=== PATIENT | male | born 1945 | race Caucasian/White ===

== ENCOUNTER → 2018-09-23 15:07 | Outpatient (CLI) | payer MEDICARE, OTHER, SELFPAY ==
[2018-10-03 14:07] LABS: Clam <0.10 kU/L (Class 0); Codfish <0.10 kU/L (Class 0); Crab <0.10 kU/L (Class 0); Egg, White 0.16 kU/L (Class 0/I); Egg, Whole 0.17 kU/L (Class 0/I); Egg, Yolk <0.10 kU/L (Class 0); Gluten <0.10 kU/L (Class 0); Milk (Cow) <0.10 kU/L (Class 0); Shrimp <0.10 kU/L (Class 0); Tomato <0.10 kU/L (Class 0); Walnut, (Food) <0.10 kU/L (Class 0); Wheat <0.10 kU/L (Class 0); Yeast <0.10 kU/L (Class 0)
[2018-10-04 10:03] LABS: Banana 0.14 kU/L (Class 0/I); Peanut <0.10 kU/L (Class 0)
== END ==
PROVIDERS: Family Provider Family Medicine Geriatric Medicine; PCP Family Medicine Geriatric Medicine; Referring Provider Otolaryngology Otolaryngology/Facial Plastic Surgery; Visit Provider Otolaryngology Otolaryngology/Facial Plastic Surgery
DX: T78.40XA Allergy, unspecified, initial encounter (principal)
CPT/HCPCS: 36415; 86003

== ENCOUNTER → 2020-03-12 15:22 | Outpatient (CLI) | payer MEDICARE, OTHER, SELFPAY ==
--- NOTE | 2020-03-12 11:21 | COLBX_PTH ---
PATIENT: DIOGENES BOWIE LOC: [facility] U#:[id number] AGE/SX: 79/M ROOM: RE03/12/[address]: Dr. Edmond Lazar MD : 1945 BED: DIS: SPEC #: [id number] RECD: 03/12/20 15:01 STATUS: MIGUEL ÁNGEL SRINIVASAN #: [id number] KYLIE: 03/12/20 11:[address]: Edmond Lazar DEPT: SURGICAL PATHOLOGY RECD BY: Ayaan Victoria ENTERED: 03/15/20 08:12 SP TYPE: COLON BX OTHR DR: Dr. Mauro Templeton MD [facility] Tissues: COLON BIOPSY Procedures: Surgery Specimen Level IV HEADER OPERATION: Colonoscopy with biopsies PRE-OP DIAGNOSIS: History of adenomatous polyp of colon TISSUE SUBMITTED: Polyp right colon; rule out adenoma MICROSCOPIC DIAGNOSIS Right colon polyp, biopsy: Fragments of tubular adenoma. AM:ramírez 03/16/20 MICROSCOPIC DESCRIPTION Slides are reviewed. GROSS DESCRIPTION Received in fixative is one container labeled with the patient's name and designated polyp right colon. The specimen consists of multiple irregular fragments of light steinberg soft tissue that in aggregate measure 2 x 0.5 x 0.1 cm. The specimen is totally submitted in one cassette. / SJ:ramírez 03/15/20 TC:5 CPT: [id number]
== END ==
PROVIDERS: PCP Family Medicine Geriatric Medicine; Visit Provider Internal Medicine Gastroenterology
DX: Z86.010 Personal history of colon polyps (principal)
CPT/HCPCS: 88305

== ENCOUNTER → 2025-03-09 | Outpatient (CLI) | payer MEDICARE, OTHER, SELFPAY ==
--- NOTE | 2025-03-09 09:06 | RAD_ITS ---
PROCEDURE: ESOPHAGUS DUAL CONTRAST 03/09/2025 REASON FOR EXAM: GERD. Dysphagia. TECHNIQUE: ESOPHAGUS DUAL CONTRAST FLUOROSCOPIC TIME: 126 seconds. Dose: 42.4 mGy. COMPARISON: None. FINDINGS: No area of persistent esophageal narrowing is noted. No mucosal mass is seen. A widely patent esophagogastric junction is noted. Recurrent spasm is seen at the mid to distal esophagus. No hiatal hernia is appreciated. During the time of imaging, gastroesophageal reflux was not elicited. Limited imaging of the stomach and duodenum shows no abnormality. RAD/Esophagus Dual Contrast IMPRESSION: Recurrent mid to distal esophageal spasm. Reading Location: [place] [id number]
== END | disposition home or self-care (01) ==
PROVIDERS: PCP Family Medicine; Referring Provider Otolaryngology; Visit Provider Otolaryngology
DX: K21.9 Gastro-esophageal reflux disease without esophagitis (principal); R13.10 Dysphagia, unspecified
CPT/HCPCS: 74221